=== PATIENT | male | born 1955 | race Caucasian/White ===

== ENCOUNTER → 2019-01-08 14:41 | Outpatient (CLI) | payer MEDICARE, SELFPAY ==
[2019-01-08 16:31] LABS: Blood Urea Nitrogen 28 mg/dL (9-20); Calcium 9.3 mg/dL (8.4-10.2); Carbon Dioxide 26 mmol/L (22-32); Chloride 102 mmol/L (98-107); Cholesterol 211 mg/dL (140-199); Estimated Glomerular Filt Rate > 60.0 mL/min (>60); Glucose 96 mg/dL (80-110); HDL Cholesterol 41 mg/dL (40-60); HEMOLYSIS < 15 (0-50); LDL Cholesterol Calculated 139 mg/dL (<100); Potassium 4.1 mmol/L (3.4-5.1); Sodium 137 mmol/L (137-145); Triglycerides 156 mg/dL (35-150)
[2019-01-08 16:45] LABS: Vitamin D 25 Hydroxy (D3) 28.9 ng/mL (30.0-100.0)
[2019-01-08 17:00] LABS: Prostate Specific Antigen Scrn 0.925 ng/mL (0.1-4.0)
== END ==
PROVIDERS: PCP Student in an Organized Health Care Education/Training Program; Visit Provider Student in an Organized Health Care Education/Training Program
DX: S32.000A Wedge compression fracture of unspecified lumbar vertebra, initial encounter for closed fracture (principal); E55.9 Vitamin D deficiency, unspecified; E78.2 Mixed hyperlipidemia; Z12.5 Encounter for screening for malignant neoplasm of prostate
CPT/HCPCS: 36415; 80048; 80061; 82306; G0103

== ENCOUNTER → 2019-04-26 06:37 | Outpatient (CLI) | payer MEDICARE, SELFPAY ==
--- NOTE | 2019-04-26 | DI.MRI.S_ITS ---
PROCEDURE: MR ANKLE LT WO CON INDICATIONS: Strain of left Achilles tendon, initial encounter TECHNIQUE: Noncontrast sagittal T1 spin echo and T2 fast spin echo with fat saturation, axial proton density fast spin echo and T2 fast spin echo with fat saturation, coronal T1 spin echo and T2 fast spin echo with fat saturation through the ankle/hindfoot. COMPARISON: [facility] Outside Film, CR, XR ANKLE 3+ VIEWS LEFT, 04/06/2019, 13:06. FINDINGS: Image quality: Diagnostic Bones and joints: No acute fracture, dislocation, or suspicious osseous lesion is appreciated involving the osseous structures of the midfoot or hindfoot. Ankle mortise is well-maintained without an osteochondral defect appreciated involving the tibial plafond toward the talar dome. Plantar and Achilles spurs are identified. There are mild to moderate degenerative changes involving the tibiotalar, medial and posterior subtalar, and tarsometatarsal joints. No significant joint effusions are appreciated. Medial structures: The deltoid and spring ligaments appear to be intact. Slight thickening and increased signal of the spring ligament is suggestive of scarring from previous partial thickness injury. There is fluid contained within it the tibialis posterior and flexor hallucis longus tendon sheaths. Otherwise, the flexor hallucis longus, tibialis posterior, and flexor digitorum longus tendons are intact and within normal limits. The posterior tibial nerve through the region of the tarsal tunnel is grossly within normal limits. Subcutaneous edema about the medial aspect of the midfoot and ankle are present. Lateral structures: The anterior and posterior distal tibiofibular ligaments are thickened, suggesting scarring from previous partial thickness injury. The anterior and posterior talofibular ligaments are intact. The calcaneofibular ligament probably is intact, as well. The peroneus brevis tendon is prominently flattened along the posterior margin of the lateral malleolus with increased signal present. There may be a short segment longitudinal split tear just beyond the tip of the lateral malleolus. There is thickening and increased signal involving the peroneus longus tendon along its imaged course. No complete tear is evident. Anterior structures: The tibialis anterior, extensor hallucis longus, and extensor digitorum longus tendons appear intact. Posterior and plantar structures: There is an irregular full-thickness tear involving the proximal Achilles tendon with a separation of the torn tendon fragments by 6-7 cm. Edema about the ligament is evident. There is edema involving the myotendinous junction. An accessory soleus muscle and tendon is probably present. The plantar fascia is not significantly thickened or torn. IMPRESSION: 1. Irregular full-thickness tear of the Achilles tendon with a moderate separation of the torn tendon fragments. 2. Mild to moderate peroneus brevis and peroneus longus tendinopathy. There may be a short segment longitudinal split tear of the peroneus brevis tendon beyond the tip of the lateral malleolus. 3. Plantar and Achilles spurs. 4. Mild to moderate degenerative changes of the midfoot and hindfoot joints. 5. Mild tibialis posterior tendinopathy with corresponding tenosynovitis. There also is mild flexor hallucis longus tenosynovitis. 6. Sprain versus scarring of the spring ligament. No complete tear is evident. Dictated by: Samson Coles M.D. on 04/26/2019 at 12:14 Approved by: Samson Coles M.D. on 04/26/2019 at 12:27
== END ==
PROVIDERS: PCP Student in an Organized Health Care Education/Training Program; Visit Provider Podiatrist
DX: S86.012A Strain of left Achilles tendon, initial encounter (principal); M65.862 Other synovitis and tenosynovitis, left lower leg
CPT/HCPCS: 73721

== ENCOUNTER → 2019-12-30 10:07 | Outpatient (CLI) | payer MEDICARE, SELFPAY ==
[2019-12-30 16:47] LABS: Hep C Virus Ab w/Reflex Quant NEGATIVE s/c (NEGATIVE)
[2019-12-31 11:37] LABS: Fecal Immunochemical Test Negative (Negative)
== END ==
PROVIDERS: PCP Nurse Practitioner; Referring Provider Nurse Practitioner; Visit Provider Nurse Practitioner
DX: Z12.11 Encounter for screening for malignant neoplasm of colon (principal); Z11.59 Encounter for screening for other viral diseases; Z91.89 Other specified personal risk factors, not elsewhere classified
CPT/HCPCS: 36415; 82274; 86803

== ENCOUNTER → 2021-05-29 16:56 | Outpatient (CLI) | payer MEDICARE, SELFPAY ==
[2021-05-29 18:35] LABS: Vitamin D 25 Hydroxy (D3) 58.1 ng/mL (30.0-100.0)
[2021-05-29 18:48] LABS: Prostate Specific Antigen 1.21 ng/mL (0.10-4.00)
== END ==
PROVIDERS: PCP Nurse Practitioner; Referring Provider Nurse Practitioner; Visit Provider Nurse Practitioner
DX: S32.000A Wedge compression fracture of unspecified lumbar vertebra, initial encounter for closed fracture (principal); E55.9 Vitamin D deficiency, unspecified; Z12.5 Encounter for screening for malignant neoplasm of prostate
CPT/HCPCS: 36415; 82306; 84153

== ENCOUNTER → 2021-06-14 09:43 | Outpatient (CLI) | payer MEDICARE, SELFPAY | PROVIDERS: PCP Nurse Practitioner; Referring Provider Nurse Practitioner; Visit Provider Nurse Practitioner | DX: M85.852 Other specified disorders of bone density and structure, left thigh (principal); S32.000A Wedge compression fracture of unspecified lumbar vertebra, initial encounter for closed fracture; E55.9 Vitamin D deficiency, unspecified | CPT/HCPCS: 77080 ==

== ENCOUNTER → 2022-11-16 10:08 | Outpatient (CLI) | payer MEDICARE, SELFPAY ==
[2022-11-16 10:41] LABS: Cholesterol 233 mg/dL (140-199); HDL Cholesterol 43 mg/dL (40-60); LDL Cholesterol Calculated 159 mg/dL (<100); Triglycerides 156 mg/dL (35-150)
[2022-11-18 15:43] LABS: Fecal Immunochemical Test Negative (Negative)
== END ==
PROVIDERS: PCP Nurse Practitioner; Referring Provider Nurse Practitioner; Visit Provider Nurse Practitioner
DX: E78.5 Hyperlipidemia, unspecified (principal); Z79.899 Other long term (current) drug therapy; Z12.11 Encounter for screening for malignant neoplasm of colon
CPT/HCPCS: 36415; 80061; 82274

== ENCOUNTER → 2023-05-13 11:50 | Outpatient (CLI) | payer MEDICARE, SELFPAY ==
--- NOTE | 2023-05-13 | DI.RAD.S_ITS ---
Bone Density Report Name: SARINA DELGADILLO Age: 68 Sex: Male Ethnicity: White Date of : 1955 Indication: screening for osteoporosis; prior fracture; Referring Provider: FEROZ OLSON Study: Bone densitometry was performed. Exam Date: May 13, 2023 Accession number: [id number] Bone Density: Region BMD T-score Z-score Classification AP Spine(L1-L4) 1.123 0.7 1.2 Normal Femoral Neck (Left) 0.765 -0.8 0.0 Normal Total Hip (Left) 0.939 0.0 0.0 Normal Femoral Neck (Right) 0.778 -0.6 0.1 Normal Total Hip (Right) 0.906 -0.3 -0.2 Normal Total Hip Mean 0.923 -0.2 -0.1 Normal World Health Organization criteria for BMD impression classify patients as: Normal (T-score at or above -1.0), Osteopenia (T-score between -1.0 and -2.5), or Osteoporosis (T-score at or below -2.5). 10-year Fracture Risk: FRAX not reported because: All T-scores for Spine Total, Hip Total, Femoral Neck at or above -1.0 Prior hip or vertebral fracture Previous Exams: -- Region Exam Age BMD T-score BMD Change BMD Change Date g/cm2 vs Baseline vs Previous -- AP Spine (L1-L4) 05/13/2023 68 1.123 0.7 0.022 (2.0%)# 0.022 (2.0%)# 06/14/2021 66 1.101 0.5 Total Hip(Left) 05/13/2023 68 0.939 0.0 0.028 (3.0%)# 0.028 (3.0%)# 06/14/2021 66 0.912 -0.2 Total Hip(Right) 05/13/2023 68 0.906 -0.3 0.005 (0.5%)# 0.005 (0.5%)# 06/14/2021 66 0.901 -0.3 -- *Denotes significance at 95% confidence level, LSC for AP Spine = 0.022 g/cm2, LSC for Total Hip = 0.027 g/cm2 # Denotes dissimilar scan types or analysis methods Impression: The patient has normal bone mass. The patient has risk factors, including: previous fracture. No significant bone loss was observed. Discussion: INCREASED RISK OF FRACTURE DUE TO HISTORY OF LOW TRAUMA FRACTURE. The patient's previous fracture puts the patient at high risk of a future fracture. In untreated patients, the risk of osteoporotic fracture increases approximately two-fold for each 1.0 SD decrease in T-score. Low bone density is not the only risk factor for fracture; also consider factors such as patient's age, frailty or poor health, risk of falling, risk of injury, previous osteoporotic fracture, family history of osteoporosis, cigarette smoking, low body weight, etc. Not everyone with a low trauma fracture has osteoporosis; osteomalacia and other metabolic bone disorders should also be considered. Patients who have osteoporosis should be evaluated for specific diseases and conditions (secondary causes) that may cause or contribute to bone loss and fracture risk. National Osteoporosis Foundation (NOF) recommends pharmacologic intervention for patients with a prior low trauma hip or vertebral fracture regardless of BMD T-score. The patient should follow a healthful lifestyle (good nutrition with adequate calcium and vitamin D, and appropriate weight-bearing exercise). Follow-Up: Consider a repeat BMD and Vertebral Fracture Assessment (VFA) exam in 2 years or sooner if medically necessary, to reassess this patient's status. Reported by: JAMAAL RODRÍGUEZ M.D. on 05/13/2023 12:32:00 PM.
== END ==
PROVIDERS: PCP Nurse Practitioner; Referring Provider Nurse Practitioner; Visit Provider Nurse Practitioner
DX: Z87.311 Personal history of (healed) other pathological fracture; M85.89 Other specified disorders of bone density and structure, multiple sites
CPT/HCPCS: 77080

== ENCOUNTER → 2023-07-17 10:52 | Outpatient (CLI) | payer MEDICARE, SELFPAY ==
[2023-07-17 12:56] LABS: Alanine Aminotransferase 25 IU/L (<50); Albumin 4.2 g/dL (3.5-5.0); Albumin Globulin Ratio 1.6 (1.0-2.8); Alkaline Phosphatase 59 U/L (38-126); Aspartate Aminotransferase 25 IU/L (17-59); BUN Creatinine Ratio 25.3 (6-22); Bilirubin Total 0.8 mg/dL (0.2-1.3); Blood Urea Nitrogen 22 mg/dL (9-20); Calcium 9.7 mg/dL (8.4-10.2); Carbon Dioxide 29 mmol/L (22-32); Chloride 99 mmol/L (98-107); Cholesterol 258 mg/dL (140-199); Estimated Glomerular Filt Rate > 60 mL/min (>60); Globulin 2.7 g/dL (1.7-4.1); Glucose 84 mg/dL (80-110); HDL Cholesterol 42 mg/dL (40-60); HEMOLYSIS < 15 (0-50); LDL Cholesterol Calculated 178 mg/dL (<100); Potassium 4.7 mmol/L (3.4-5.1); Sodium 136 mmol/L (137-145); Total Protein 6.9 g/dL (6.3-8.2); Triglycerides 191 mg/dL (35-150)
== END ==
PROVIDERS: PCP Nurse Practitioner; Referring Provider Nurse Practitioner; Visit Provider Nurse Practitioner
DX: E78.2 Mixed hyperlipidemia (principal); Z79.899 Other long term (current) drug therapy; E78.5 Hyperlipidemia, unspecified
CPT/HCPCS: 36415; 80053; 80061

== ENCOUNTER → 2023-11-29 08:52 | Outpatient (CLI) | payer MEDICARE, SELFPAY ==
[2023-11-29 09:27] LABS: Appearance Urine UA CLEAR; Bilirubin Urine UA NEGATIVE (NEGATIVE); Color Urine UA YELLOW; Glucose Urine UA NEGATIVE (Negative); Ketones Urine UA NEGATIVE (NEGATIVE); Leukocyte Esterase Urine UA NEGATIVE (NEGATIVE); Nitrite Urine UA NEGATIVE (Negative); Occult Blood Urine UA NEGATIVE (Negative); Protein Urine UA NEGATIVE (Negative); Specific Gravity Urine UA >=1.030 (1.000-1.035); Urobilinogen Urine UA 0.2 E.U./dL (0.2)
[2023-11-29 10:03] LABS: Bacteria Urine Occasional (0-1); RBC Urine None Seen (0-5/HPF); Squamous Epithelial Cell Urine 0-1 /HPF (0-5/HPF); Urine Volume 10mL (spun); WBC Urine 0-1/HPF (0-5/HPF)
[2023-11-29 10:04] LABS: Culture Indicated Urine Cult Not Indicated
[2023-11-29 10:42] LABS: Urine N gonorrhoeae NOT DETECTED
[2023-11-29 11:28] LABS: Urine Chlamydia NOT DETECTED
== END ==
PROVIDERS: PCP Nurse Practitioner; Visit Provider Physician Assistant Medical
DX: N50.89 Other specified disorders of the male genital organs (principal)
CPT/HCPCS: 81001; 87491; 87591

== ENCOUNTER → 2025-04-27 14:18 | Outpatient (CLI) | payer MEDICARE, OTHER, SELFPAY ==
[2025-04-27 15:50] LABS: Add Manual Diff / Slide Review NO; Hematocrit 43.4 % (41-53); Hemoglobin 15.1 g/dL (13.5-17.5); Lymphocytes Absolute Auto 1500 /uL (1100-4500); Mean Corpuscular HGB Conc 34.7 % (30-36); Mean Corpuscular Hemoglobin 32.2 PG (26-34); Mean Corpuscular Volume 92.8 fL (80-100); Platelet Count 169 X10^3/uL (150-400)
[2025-04-27 16:15] LABS: Alanine Aminotransferase 21 IU/L (<50); Albumin 4.1 g/dL (3.5-5.0); Albumin Globulin Ratio 1.5 (1.0-2.8); Alkaline Phosphatase 58 U/L (38-126); Blood Urea Nitrogen 32 mg/dL (9-20); Calcium 9.3 mg/dL (8.4-10.2); Carbon Dioxide 26 mmol/L (22-32); Chloride 104 mmol/L (98-107); Cholesterol 219 mg/dL (140-199); Estimated Glomerular Filt Rate > 60 mL/min (>60); Globulin 2.8 g/dL (1.7-4.1); Glucose 88 mg/dL (70-99); HDL Cholesterol 37 mg/dL (40-60); HEMOLYSIS < 15 (0-50); Sodium 137 mmol/L (137-145); Total Protein 6.9 g/dL (6.3-8.2); Triglycerides 183 mg/dL (35-150)
[2025-04-27 16:27] LABS: Potassium 4.4 mmol/L (3.4-5.1)
== END ==
PROVIDERS: PCP Family Medicine; Referring Provider Family Medicine; Visit Provider Family Medicine
DX: Z00.00 Encounter for general adult medical examination without abnormal findings (principal); E78.5 Hyperlipidemia, unspecified
CPT/HCPCS: 36415; 80053; 80061; 85025

== ENCOUNTER → 2025-05-26 15:19 | Outpatient (CLI) | payer MEDICARE, OTHER, SELFPAY ==
--- NOTE | 2025-05-26 17:44 | DI.NM.S_ITS ---
DATE OF SERVICE: 05/26/2025 PROCEDURE: Exercise stress test. INDICATIONS: Preop evaluation. CARDIAC STRESS: The patient underwent exercise stress test under the supervision of an attending staff. The patient walked on Robin protocol for 10 minutes and 58 seconds, achieved maximum heart rate of 157, which was 106% of target heart rate. Normal blood pressure response. Resting blood pressure 134/78 and peak blood pressure 200/74. Baseline rhythm sinus. During stress, no convincing ischemic changes seen. Rare PVCs without any complex arrhythmias. DENICE -59%, 12.8 METS of workload. Normal recovery. No chest pain. CONCLUSION: 1. Exercise stress test is negative for inducible ischemia. 2. Excellent exercise capacity. DENICE -59%. Normal hemodynamic response. No anginal symptoms. No significant arrhythmias. Overall, low-risk exercise stress test. Bg Huerta - CANDELARIA/ivan/MARGE doc#: [id number]/job#: [id number] dd: 05/26/2025 17:23:00 dt: 05/26/2025 17:37:00 DICTATING /COPIES TO: Tanisha Dawn MD COPIES MNE: TIMMY;
== END ==
PROVIDERS: PCP Family Medicine; Referring Provider Family Medicine; Visit Provider Family Medicine
DX: R06.02 Shortness of breath (principal); R42 Dizziness and giddiness
CPT/HCPCS: 93017